=== PATIENT | male | born 1960 | race Caucasian/White ===

== ENCOUNTER 2018-03-23 08:11 | Inpatient (IN) | payer OTHER ==
--- NOTE | 2018-03-17 10:50 | RAD REPORT ---
EXAM DESCRIPTION: RAD - Chest Pa And Lat (2 Views) - 03/17/2018 10:43 am CLINICAL HISTORY: preop Chest pain. COMPARISON: No comparisons FINDINGS: The lungs are hyperexpanded but clear. Blunting of the costophrenic angles is present comp atible with pleural thickening. The heart is normal in size. No displaced fractures. IMPRESSION: Hyperexpanded but clear lungs.
--- NOTE | 2018-03-17 11:27 | EKG ---
Test Date: 2018-03-17 Test Time: 10:39:36 Drying Frame Operator: SKG MEASUREMENT RESULTS: Intervals: Rate: 64 DE: 148 QRSD: 76 QT: 408 QTc: 420 [place]: P: 48 DE: 148 QRS: 26 T: 34 INTERPRETIVE STATEMENTS: Normal sinus rhythm Normal ECG No previous ECG available for comparison Electronically Signed On 03-17-18 11:27:27 PATIENT ACCESS DIRECTOR by Parish Kirkland
[2018-03-17 12:26] LABS: Absolute Monocytes 0.7 K/uL (0.1-1.3); Absolute Neutrophil 8.3 K/uL (1.8-8.0); Basophils % 0.5 % (0-1.3); Eosinophils % 0.9 % (0-4.4); Hematocrit 42.9 % (39.6-49.0); MCH 32.3 pg (27.0-35.0); MCV 94.2 fL (80-100); MPV 8.8 fL (7.6-11.3); Monocytes % 6.4 % (3.3-12.3); RBC Red Blood Cell Count 4.55 M/uL (4.33-5.43)
[2018-03-17 12:29] LABS: Protime INR 0.97
[2018-03-17 12:40] LABS: Potassium 4.1 mmol/L (3.5-5.1)
[~2018-03-23 08:11] MED LIST: CEFAZOLIN 1GM (PREMIX IV) 0 GM/0 ML BAG ONE; CLINDAMYCIN INJ 600 MG in NA CHLORIDE 0.9% 50 ML IV SCH
[2018-03-23] MEDS ORDERED: Ringers Lactate 1,000 ML IV ONE ×2 (08:45→12:38)
[2018-03-23] MEDS ORDERED: TRANEXAMIC ACID 1,000 MG in NA CHLORIDE 0.9% 50 ML IV SCH (10:15)
[2018-03-23] MEDS ORDERED: FENTANYL CITR 100 MCG/2 ML ONE ×2 (10:45→12:00)
[2018-03-23] MEDS ORDERED: BUPIVACA 0.5%/EPI 0.0005%/PF 10 ML VIAL ONE ×3 (10:45→10:47)
[2018-03-23] MEDS ORDERED: DEXAMETHASONE 4 MG/ML VIAL ONE (10:45)
[2018-03-23] MEDS ORDERED: EPINEPHRINE/PF 1 MG/ML AMP ONE (10:45)
[2018-03-23] MEDS ORDERED: MIDAZOLAM HCL 2 MG/2 ML INJ ONE (10:45)
[2018-03-23] MEDS ORDERED: LIDOCAINE 2% MPF 5 ML VIAL ONE (11:30)
[2018-03-23] MEDS ORDERED: PROPOFOL 200 MG/20 ML VIAL IV ONE (11:30)
--- NOTE | 2018-03-23 14:08 | P.BOP ---
Preoperative diagnosis: right knee osteoarthritis Postoperative diagnosis: same Primary procedure: right total knee arthroplasty Remote Sensing Scientist: NONE,NONE Estimated blood loss: 20 cc Specimen: right knee bone remnants Findings: see dictation Anesthesia: General Complications: None Drain(s): Urinary catheter Implants: Biomet Size 67.5 CR femur, size 75 tibia, 10 mm CR-E poly Fluids & blood products: per anesthesia record; TT: 62 mins @ 300 mmHg Transferred to: Recovery Room Condition: Good
[2018-03-23] MEDS ORDERED: MORPHINE 4 MG/ML SYR IV PRN (14:10)
[2018-03-23] MEDS ORDERED: DOCUSATE NA 100 MG CAP PO PRN (14:10)
[2018-03-23] MEDS ORDERED: HYDROCODONE/APAP 7.5/325 MG TAB PO PRN (14:10)
[2018-03-23] MEDS ORDERED: MEPERIDINE HCL 25 MG/0.5 ML ONE (14:13)
[2018-03-23] MEDS ORDERED: MORPHINE 4 MG/ML SYR ONE (14:28)
--- NOTE | 2018-03-23 14:45 | RAD REPORT ---
EXAM DESCRIPTION: RAD - Knee Right 2 View - 03/23/2018 2:40 pm CLINICAL HISTORY: Post Op Right knee total knee arthroplasty COMPARISON: No comparisons FINDINGS: A right total knee arthroplasty has been performed. Hardware is in expected positioning al ignment. Small amount of air is present in joint space.
[2018-03-23 14:49] LABS: Hematocrit 39.5 % (39.6-49.0)
[2018-03-23 15:58] VITALS: BMI 32.8
[2018-03-23] MEDS: CLINDAMYCIN INJ 600 MG in NA CHLORIDE 0.9% 50 ML IV SCH (17:04)
[2018-03-23] MEDS: methylPREDNISolone 4 MG TAB PO SCH (18:17)
[2018-03-23] MEDS: OXYCODONE *CR* 10 MG TAB PO SCH (20:29)
--- NOTE | 2018-03-23 20:50 | P.OP ---
Preoperative diagnosis: right knee osteoarthritis Postoperative diagnosis: right knee osteoarthritis Primary procedure: right total knee arthroplasty Anesthesia: general Estimated blood loss: 20 cc Specimen: right knee bone remnants Findings: see dictation Operative Technique: Indication For Procedure: Vladimir is a 57-year-old female, who presented to my clinic with rightt knee pain due to right knee osteoarthritis. The patient failed conservative treatment measures including home exercises, corticosteroid injections and viscosupplementation injections. He reported continued pain that affect his activities of daily living. He was recommended total knee arthoplasty. Description Of Procedure: After informed consent was obtained, the patient was identified in preop holding area. The right lower extremity was marked. The patient underwent a femoral nerve block performed by Anesthesia. He was then taken back to the operative room and transferred to the operating table in supine fashion and placed under general LMA anesthesia. The right lower extremity was then prepped and draped in usual sterile fashion. A time-out was initiated. Correct patient and procedure were confirmed and identified. The patient had received preoperative prophylactic antibiotics. The right lower extremity was exsanguinated and the tourniquet was inflated to 300 mmHg. Approximately, a 15 cm longitudinal incision was made over the anterior aspect of the knee centered over the patella. A standard median parapatellar approach was taken. The dissection was taken to the extensor mechanism. A median parapatellar arthrotomy was then performed. The patella was then everted and the fat pad and medial and lateral meniscus were excised. A lateral release was performed of the patella and osteophytes were removed using a rongeur. There was minimal cartilage wear on the undersurface of the patella and it was decided to not resurface the patella. Next, attention was taken to the femur, retractors were placed within the knee and the knee was held in flexion. A partial synovectomy was performed over the anterior aspect of the distal femur. A cutting block has been created preoperatively using MRI imaging and the block was then placed over the distal femur and then positioned and was stacked into place and pins were placed within the guide hole in the block. The distal femoral cutting guide was then placed over the pre-placed guide pin and the distal femur was cut after proper confirming using an Mathew wing. After this was performed, the anterior-posterior distal femoral cuts were made as well as the chamfer cut without complication. MCL and lateral remnants were resected as well as patellar tendon with knee retractors. Both remnants were then removed and sent to Pathology. Next attention was taken to the proximal tibia. The soft tissue medially was then elevated off the proximal tibia directly off bone using Bovie electrocautery. Pre-made cutting block was placed over the proximal tibia and once locked into position, pin were placed as well as the alignment lester was used to ensure proper placement of the cutting guide. There was overall good alignment and position of the cutting guide. Pins were then placed. The cutting block was removed. The cutting guide was placed on the proximal tibia and again the mathew wing was then used to ensure proper depth of the cut. An osteotome then used to make cuts around the PCL and the saw was used to cut the proximal tibia and the proximal tibial cut was then removed with the meniscal grasper. Bone fragments were then removed and meniscectomies were completed. Next, the knee was held in 90 degrees of flexion and forward extension and a 10-mm guide was then selected and there was good overall fit and stability in flexion and extension. Next, the trials were placed, size 67.5 CR femur was placed and a size 75 tibia with a 10 mm poly. The knee was then ranged and had good stability, both in forward flexion and extension and had full range of motion. The knee was ranged and there was good stability of the patella as well as the rest of the knee. The tibia was marked with the Bovie electrocautery. The femur was drilled and once in proper position and the tibia was punched. Trial implants were then removed. The knee was then irrigated thoroughly with pulsed lavage normal saline. A 0.5% Marcaine with epinephrine was then used 30 cc for local anesthetic and to aid with postoperative pain control. The cement was prepared as well as the implant. Size 75 tibia was then placed followed by the size 67.5 CR femur. Excess cement was then removed using [place] elevator. A 10-mm trial poly was then placed and the knee was held in full extension as the cement hardened. Once the cement was completely hardened, the knee was ranged with good overall stability as well as good flexion and extension. Trial poly ethylene liner was removed and a final 10 mm CR-E poly was placed and locked in position. The knee was again irrigated thoroughly with normal saline. The tourniquet was let down. Hemostasis was achieved with Bovie electrocautery. The extensor mechanism was closed with #1 Vicryl in an interrupted fashion followed by #1 Vicryl in a running fashion. Fascia was then approximated using 0 Vicryl. Subcutaneous tissue was approximated used 2-0 Vicryl and the skin was approximated using 3-0 nylon. Sterile dressings were applied. The patient was awakened and transferred to PACU in stable condition. Postoperative Plan: He will be weightbearing as tolerated. Physical therapy will aide with mobilization and pain management. CPM machine will be placed in the PACU postoperatively. Complications: None Drain(s): Urinary catheter Implants: 67.5 CR femur, 75 tibia, 10 mm CR- E poly Fluids & blood products: per anesthesia record; 62 mins @ 300 mmHg Transferred to: Recovery Room Condition: Good
[2018-03-24] MEDS: CLINDAMYCIN INJ 600 MG in NA CHLORIDE 0.9% 50 ML IV SCH ×2 (02:09→09:07)
[2018-03-24] MEDS: ENOXAPARIN 30 MG/0.3 ML SQ SCH ×3 (05:53→20:20)
[2018-03-24] MEDS: methylPREDNISolone 4 MG TAB PO SCH ×2 (09:06→16:32)
[2018-03-24 09:07] LABS: Absolute Lymphocytes (CBC) 1.5 K/uL (0.7-4.9); Absolute Monocytes 0.7 K/uL (0.1-1.3); Absolute Neutrophil 7.9 K/uL (1.8-8.0); Basophils % 0.4 % (0-1.3); Eosinophils % 0.1 % (0-4.4); Hematocrit 39.8 % (39.6-49.0); Lymphocytes % 14.7 % (15.3-44.8); MCH 31.8 pg (27.0-35.0); MCV 93.4 fL (80-100); MPV 7.7 fL (7.6-11.3); Monocytes % 6.9 % (3.3-12.3); RBC Red Blood Cell Count 4.26 M/uL (4.33-5.43)
[2018-03-24] MEDS: CELECOXIB 100 MG CAPSULE PO SCH (09:07)
[2018-03-24] MEDS: OXYCODONE *CR* 10 MG TAB PO SCH ×2 (09:07→20:19)
[2018-03-24 09:16] LABS: Potassium 3.7 mmol/L (3.5-5.1)
--- NOTE | 2018-03-24 11:38 | P.PN ---
Subjective Date of Service: 03/24/18 Chief Complaint: s/p R TKA Subjective: Ambulating, Working w/ PT Pain controlled. Physical Examination - Vital Signs Temperature: 97.0 F Blood Pressure: 106/71 Pulse: 81 Respirations: 18 Pulse Ox (%): 97 - Physical Exam General: Alert, In no apparent distress Musculoskeletal: Other (RLE: dressing c/d/i; +EHL/FHL/GSC/TA; sensation grossly intact distally) - Studies Laboratory Data (last 24 hrs) 03/24/18 08:42: Sodium 137, Potassium 3.7, BUN 10, Creatinine 0.90, Glucose 122 H 03/24/18 08:42: WBC 10.1, Hgb 13.5 L, Hct 39.8, Plt Count 305 03/23/18 14:37: Hgb 13.4 L, Hct 39.5 L Assessment And Plan - Plan Vladimir is a 57 yo male s/p R TKA POD#1 -PT to mobilize; WBAT RLE -h/h stable -lovenox for DVT prophylaxis
[2018-03-24 21:17] VITALS: O2SAT 92
--- NOTE | 2018-03-25 10:02 | P.PN ---
Subjective Date of Service: 03/25/18 Chief Complaint: s/p R TKA Subjective: Ambulating, Improving, Working w/ PT Pain controlled. Physical Examination - Vital Signs Temperature: 97.4 F Blood Pressure: 99/63 Pulse: 73 Respirations: 16 Pulse Ox (%): 93 - Physical Exam General: Alert, In no apparent distress Musculoskeletal: Other (RLE: dressing c/d/i; no surrounding erythema; NVI distally) Assessment And Plan - Plan Vladimir is a 57 yo male s/p R TKA POD#2 -PT to mobilize; WBAT RLE -lovenox for DVT prophylaxis; will transition to Xarelto at home -d/c home today
--- NOTE | 2018-03-25 10:05 | P.DS ---
Admission Date: 03/23/18 Discharge Date: 03/25/18 Disposition: DC HOME/HOME HEALTH CARE Discharge Condition: GOOD Reason for Admission: s/p R TKA Procedures: right total knee arthroplasty 03/23/2018 Brief History of Present Illness: Vladimir is a 57 yo male that underwent R TKA on 03/23 without complication and was admitted to the floor for monitoring, pain control and PT Hospital Course: Vladimir underwent R TKA without complication and was admitted to the floor in stable condition. PT was consulted postoperatively and he ambulated safely. He was discharged on 03/25 in stable condition. His H/H and vital signs remained stable throughout hospital course. Vital Signs/Physical Exam: Temp Pulse Resp BP Pulse Ox 97.4 F 73 16 99/63 93 03/25/18 10:02 03/25/18 10:02 03/25/18 10:02 03/25/18 10:02 03/25/18 10:02 Laboratory Data at Discharge: WBC 10.1 K/uL (4.3-10.9) 03/24/18 08:42 Hgb 13.5 g/dL (13.6-17.9) L 03/24/18 08:42 Hct 39.8 % (39.6-49.0) 03/24/18 08:42 Plt Count 305 K/uL (152-406) 03/24/18 08:42 PT 11.5 SECONDS (9.5-12.5) 03/17/18 10:40 INR 0.97 03/17/18 10:40 APTT 31.1 SECONDS (24.3-36.9) 03/17/18 10:40 Sodium 137 mmol/L (136-145) 03/24/18 08:42 Potassium 3.7 mmol/L (3.5-5.1) 03/24/18 08:42 BUN 10 mg/dL (7-18) 03/24/18 08:42 Creatinine 0.90 mg/dL (0.55-1.3) 03/24/18 08:42 Glucose 122 mg/dL (74-106) H 03/24/18 08:42 Home Medications: Methotrexate [Methotrexate*] 6 tab PO EVERY 7TH DAY 03/17/18 methylPREDNISolone [Methylprednisolone] 4 mg PO BID 03/17/18 Hydrocodone 7.5/APAP 325 [[place] 7.5/325 mg*] 1 tab PO Q4H PRN tab 03/25/18 Patient Discharge Instructions: keep dressing clean and dry. Change dressing with new aquacell bandage on 03/30. Begin taking Xarelto on 03/26 in AM at home. Diet: Regular Activity: Weight bearing as tolerated Followup: Allen Can MD [ACTIVE - CAN ADMIT] - 1-2 Weeks
[2018-03-25] MEDS: methylPREDNISolone 4 MG TAB PO SCH (10:26)
[2018-03-25] MEDS: ENOXAPARIN 30 MG/0.3 ML SQ SCH (10:27)
[2018-03-25] MEDS: CELECOXIB 100 MG CAPSULE PO SCH (10:27)
[2018-03-25] MEDS: OXYCODONE *CR* 10 MG TAB PO SCH (10:27)
[2018-03-25 18:41] VITALS: BP 112/70; TEMP 98.3
[2018-03-27] MEDS ORDERED: METHOTREXATE 2.5 MG TAB PO SCH (09:00)
== END 2018-03-25 13:30 | disposition home health service (06) | DRG 470 ==
LOC: DS 08:11 → OR 08:11 → OBSVTOIN 14:12 → 2ND 14:12 → OBSVTOIN 03-24 13:12 → INTOOBSV 03-24 13:12
PROVIDERS: ADMIT Orthopaedic Surgery Sports Medicine; ATTEND Orthopaedic Surgery Sports Medicine
PROC: 0SRC0J9 Replacement of Right Knee Joint with Synthetic Substitute, Cemented, Open Approach (ICD-10-PCS; principal; 2018-03-23 09:30)
DX: M17.11 Unilateral primary osteoarthritis, right knee (principal); M06.9 Rheumatoid arthritis, unspecified
CPT/HCPCS: 36415; 71046; 80048; 85014; 85018; 85025; 85610; 85730; 88304; 88305; 88311; 93005; 97110; 97116; 97139; 97163; J0171; J0690; J1650; J2175; J2250; J2704; J3010; J7509

== ENCOUNTER 2022-12-30 06:02 | Observation (INO) | payer OTHER ==
[2022-12-24 09:48] LABS: Absolute Lymphocytes (CBC) 1.1 K/uL (0.7-4.9); Hematocrit 51.2 % (39.6-49.0); Lymphocytes % 44.4 % (15.3-44.8); MCV 98.7 fL (80-100); MPV 7.2 fL (7.6-11.3); Platelets 198 thou/uL (152-406); RBC Red Blood Cell Count 5.19 M/uL (4.33-5.43)
[2022-12-24 09:51] LABS: Protime INR 0.94
--- NOTE | 2022-12-24 10:13 | RAD REPORT ---
EXAM DESCRIPTION: [facility] Pa And Lat (2 Views)12/24/2022 9:43 am CLINICAL HISTORY: pre op for surgery. Hypertension COMPARISON: Chest Pa And Lat (2 Views) dated 03/17/2018 TECHNIQUE: PA and lateral views of the chest. FINDINGS: The lungs are clear. Stable bibasilar atelectatic changes. No pneumothorax or effusion. T he cardiomediastinal contours are unremarkable. IMPRESSION: No acute cardiopulmonary process.
--- NOTE | 2022-12-24 13:00 | EKG ---
Test Date: 2022-12-24 Test Time: 09:22:15 [place]: SHAWN MEASUREMENT RESULTS: Intervals: Rate: 70 ND: 154 QRSD: 76 QT: 402 QTc: 434 [place]: P: 56 ND: 154 QRS: 1 T: 35 INTERPRETIVE STATEMENTS: Normal sinus rhythm Low voltage QRS Borderline ECG Compared to ECG 03/17/2018 10:39:36 Low QRS voltage now present Electronically Signed On 12-24-22 13:00:01 CDT by Lance Lopez
[2022-12-24 15:02] LABS: Blood Morphology Comment NOT SEEN (NOT SEEN); Platelet Estimate ADEQ
[2022-12-30] MEDS ORDERED: CEFAZOLIN SODIUM 2 GM/VIAL ONE (06:28)
[2022-12-30] MEDS ORDERED: Ringers Lactate 1,000 ML IV ONE ×2 (06:28→09:26)
[2022-12-30] MEDS ORDERED: CELECOXIB 100 MG CAPSULE ONE (06:47)
[2022-12-30] MEDS ORDERED: GABAPENTIN 100 MG CAP ONE (06:47)
[2022-12-30] MEDS ORDERED: Oxycodone HCl/Acetaminophen 1 TAB TAB ONE (06:48)
[2022-12-30] MEDS ORDERED: ACETAMINOPHEN 500 MG TAB ONE (06:48)
[2022-12-30] MEDS ORDERED: dexAMETHasone 10 MG/ML VIAL ONE (07:03)
[2022-12-30] MEDS ORDERED: FENTANYL CITR 100 MCG/2 ML ONE (07:03)
[2022-12-30] MEDS ORDERED: LIDOCAINE 2% MPF 5 ML VIAL ONE ×2 (07:03→08:20)
[2022-12-30] MEDS ORDERED: MIDAZOLAM HCL 2 MG/2 ML INJ ONE (07:04)
[2022-12-30] MEDS ORDERED: BUPIVACAINE 0.25% PF 30 ML VIAL ONE (07:04)
[2022-12-30] MEDS ORDERED: EPINEPHRINE/PF 1 MG/ML AMP ONE (07:04)
[2022-12-30] MEDS ORDERED: TRANEXAMIC ACID 1,000 MG/10 ML VIAL IV ONE (07:37)
[2022-12-30] MEDS ORDERED: DEXMEDETOMIDINE HCL 200 MCG/2 ML VIAL ONE (08:06)
[2022-12-30] MEDS ORDERED: MAGNESIUM SULFATE 1 gm IVPB 1 GM/100 ML BAG IV ONE (08:07)
[2022-12-30] MEDS ORDERED: propofoL 200 MG/20 ML VIAL IV ONE (08:19)
[2022-12-30] MEDS ORDERED: KETAMINE HCL IN 0.9 % NACL 50 MG/5 ML SYRINGE IV ONE (08:19)
[2022-12-30] MEDS: BUPIVACAINE 0.5% PF 10 ML VIAL ONE ×2 (08:39→09:37)
[2022-12-30] MEDS ORDERED: ONDANSETRON 4 MG/2 ML VIAL ONE (09:35)
--- NOTE | 2022-12-30 11:02 | P.BOP ---
Preoperative diagnosis: left knee osteoarthritis Postoperative diagnosis: same Primary procedure: left total knee arthroplasty Logistics Planning Manager: NONE,NONE Estimated blood loss: 50 cc Specimen: left knee bone remnants Findings: see dictation Anesthesia: General Complications: None Implants: Biomet Efra Persona 8 CR femur, G tibia, 13 mm CR poly, 32 patella Fluids & blood products: per anesthesia record; TT: 89 mins @ 300 mmHg Transferred to: Recovery Room Condition: Good
[2022-12-30] MEDS: HYDROMORPHONE HCL 1 MG/ML INJ ONE ×2 (11:21→11:28)
[2022-12-30] MEDS ORDERED: ONDANSETRON 4 MG/2 ML VIAL IV PRN (11:29)
[2022-12-30] MEDS ORDERED: HYDROCODONE/APAP 7.5/325 MG TAB PO PRN (11:29)
[2022-12-30] MEDS ORDERED: DOCUSATE NA 100 MG CAP PO PRN (11:29)
[2022-12-30] MEDS ORDERED: ACETAMINOPHEN 325 MG TABLET PO PRN (11:29)
[2022-12-30] MEDS ORDERED: TRAMADOL HCL 50 MG TAB PO PRN (11:32)
--- NOTE | 2022-12-30 11:39 | P.OP ---
Preoperative diagnosis: left knee osteoarthritis Postoperative diagnosis: same Primary procedure: left total knee arthroplasty Anesthesia: general Estimated blood loss: 50 cc Specimen: left knee bone remnants Findings: see dictation Operative Technique: Indication For Procedure: Vladimir is a 62-year-old female, who presented to my clinic with left knee pain due to left knee osteoarthritis. The patient failed conservative treatment measures including home exercises, corticosteroid injections and viscosupplementation injections. He reported continued pain that affect his activities of daily living. He was recommended total knee arthoplasty. Description Of Procedure: After informed consent was obtained, the patient was identified in preop holding area. The left lower extremity was marked. The patient underwent an adductor canal nerve block performed by Anesthesia. He was then taken back to the operative room and transferred to the operating table in supine fashion and placed under general LMA anesthesia. The left lower extremity was then prepped and draped in usual sterile fashion. A time-out was initiated. Correct patient and procedure were confirmed and identified. The patient had received preoperative prophylactic antibiotics. The left lower extremity was exsanguinated and the tourniquet was inflated to 300 mmHg. Approximately, a 15 cm longitudinal incision was made over the anterior aspect of the knee centered over the patella. A standard median parapatellar approach was taken. The dissection was taken to the extensor mechanism. A median parapatellar arthrotomy was then performed. The patella was then everted and the fat pad and medial and lateral meniscus were excised. A lateral release was performed of the patella and osteophytes were removed using a rongeur. There was minimal cartilage wear on the undersurface of the patella and it was decided to not resurface the patella. Next, attention was taken to the femur, retractors were placed within the knee and the knee was held in flexion. A partial synovectomy was performed over the anterior aspect of the distal femur. A cutting block has been created preoperatively using CT scan imaging and the block was then placed over the distal femur and then positioned and was stacked into place and pins were placed within the guide hole in the block. The distal femoral cutting guide was then placed over the pre-placed guide pin and the distal femur was cut after proper confirming using an Mathew wing. After this was performed, the anterior-posterior distal femoral cuts were made as well as the chamfer cut without complication. MCL and lateral remnants were resected as well as patellar tendon with knee retractors. Both remnants were then removed and sent to Pathology. Next attention was taken to the proximal tibia. The soft tissue medially was then elevated off the proximal tibia directly off bone using Bovie electrocautery. Pre-made cutting block was placed over the proximal tibia and once locked into position, pin were placed as well as the alignment lester was used to ensure proper placement of the cutting guide. There was overall good alignment and position of the cutting guide. Pins were then placed. The cutting block was removed. The cutting guide was placed on the proximal tibia and again the mathew wing was then used to ensure proper depth of the cut. An osteotome then used to make cuts around the PCL and the saw was used to cut the proximal tibia and the proximal tibial cut was then removed with the meniscal grasper. Bone fragments were then removed and meniscectomies were completed. Next, the knee was held in 90 degrees of flexion and forward extension and a 12- mm guide was then selected and there was good overall fit and stability in flexion and extension. Next, the trials were placed, size 8 CR femur was placed and a size G tibia with a 13 mm poly. The knee was then ranged and had good stability, both in forward flexion and extension and had full range of motion. Lateral release was performed and the patella was cut and a size 32 patellar button was selected. The knee was ranged with good overall stability. The knee was ranged and there was good stability of the patella as well as the rest of the knee. The tibia was marked with the Bovie electrocautery. The femur was drilled and once in proper position and the tibia was punched. Trial implants were then removed. The knee was then irrigated thoroughly with pulsed lavage normal saline. A 0.5% Marcaine with epinephrine was then used 30 cc for local anesthetic and to aid with postoperative pain control. The cement was prepared as well as the implant. Size G tibia was then placed followed by the size 8 CR femur. Excess cement was then removed using [place] elevator. A 13-mm trial poly was then placed and the knee was held in full extension as the cement hardened. A 32 patellar implant was placed with cement without complication. Once the cement was completely hardened, the knee was ranged with good overall stability as well as good flexion and extension. Trial poly ethylene liner was removed and a final 13 mm CR-E poly was placed and locked in position. The knee was again irrigated thoroughly with normal saline. The tourniquet was let down. Hemostasis was achieved with Bovie electrocautery. The extensor mechanism was closed with #1 Vicryl in an interrupted fashion followed by #1 Vicryl in a running fashion. Fascia was then approximated using 0 Vicryl. Subcutaneous tissue was approximated used 2-0 Vicryl and the skin was approximated using 3-0 nylon. Sterile dressings were applied. The patient was awakened and transferred to PACU in stable condition. Postoperative Plan: He will be weightbearing as tolerated. Physical therapy will aide with mobilization and pain management. CPM machine will be placed in the PACU postoperatively. Complications: None Implants: Biomet Efra Persona 8 CR femur, G tiba, 13 CR poly, 32 patella Fluids & blood products: per anesthesia record; TT 89 mins @ 300 mmHG Transferred to: Recovery Room Condition: Good
--- NOTE | 2022-12-30 11:40 | RAD REPORT ---
EXAM DESCRIPTION: RAD - Knee Left 2 View - 12/30/2022 11:22 am CLINICAL HISTORY: s/p L TKA COMPARISON: No comparisons FINDINGS: Left total hip arthroplasty is noted. Skin lauren are noted. Mild gas within the joint. N o unexpected postoperative finding.
[2022-12-30] MEDS ORDERED: DRISDOL (VITAMIN D=ERGOCALCIFEROL) 50000 UNIT CAP PO SCH (12:00)
--- OUTSIDE RECORDS SUMMARY | 2022-12-30 12:35 | XMS REPORT | Continuity of Care Document ---
:1960 [facility] t Address [address] [place] [address] [place] [address] Care Team Providers Name Role Phone THAO RIDDLE Primary Care Physician Unavailable Dmitry Vick Attending Clinician Unavailable THAO RIDDLE Attending Clinician Unavailable RADHA JEFFERSON Attending Clinician Unavailable Radha Jefferson MD Attending Clinician Doctor Unassigned, [place] Attending Clinician Unavailable Thao Orellana Attending Clinician Lab, Ang - Db Attending Clinician Unavailable King GASPER MD, James C Attending Clinician Unknown, Attending Attending Clinician Unavailable NOLA PERKINS III Attending Clinician Unavailable RADHA JEFFERSON Admitting Clinician Unavailable Radha Jefferson MD Admitting Clinician Payers Payer Name Policy Type Policy Number Effective Date Expiration Date Reyna PENG PPO [id number] 2022 00:00:00 Problems Condition Condition Condition Status Onset Resolution Last Treating Co mments Source Name Details Category Date Date Treatment Clinician Date Obesity Obesity Disease Active Univers (BMI (BMI 7-31 ity of 30-39.9) 30-39.9) 00:00: [place] 00 Medical Branch Encounter Encounter Disease Active Uni vers for for 5-16 ity of screening screening 00:00: [place] colonoscop colonoscop 00 Mi dical y y Branch Encounter Encounter Disease Active Uni vers for for 5-01 [place] of hepatitis hepatitis [place] 00 Medical screening screening Bran ch test for test for low risk low risk patient patient Allergies, Adverse Reactions, Alerts Allergy Allergy Status Severity Reaction(s) Onset Inactive Treating Comm ents Source Name Type Date Date Clinician TETANUS DRUG Active High N/V Univers TOXOID 11-02 ity of 00:00: [place] 00 Medical [place] Tetanus Propensi Active Nausea Was put [facility] s Toxoid ty to and/or 11-02 in the ity of adverse Vomiting 00:00: hospital [place] reaction 00 as a Medical s to child Branch drug after getting tetanus shot. NO KNOWN Drug Active Univers ALLERGIE Class ity of S [facility] Social History Social Habit Start Date Stop Date Quantity Comments Source Gender identity [facility] Sexual orientation [facility] History of Social 2022-11-09 2022-11-09 Univers ity of function 00:00:00 00:00:00 [facility] Exposure to 2022-07-31 2022-08-10 Not sure [facility] SARS-CoV-2 (event) 00:00:00 08:33:00 [facility] Tobacco use and 2022-06-11 2022-06-11 Smokeless Universit y of exposure 00:00:00 00:00:00 tobacco non-user [facility] Sex Assigned At [birth year] Universit y of 00:00:00 00:00:00 [facility] Smoking Status Start Date Stop Date Source Tobacco smoking consumption [facility] Branch Never smoked tobacco [facility] Medications Ordered Filled Start Stop Current Ordering Indication Dosage Frequency Signature Comments Components Source Medication Medication Date Date Medication? Clinician (SIG) Name Name lactated Yes 1000mL at 100 Unive rs ringers IV 7-31 mL/hr, ity of infusion 18:30: 1,000 [place] 1[place]000 [place] 00 IV Medical Infusion, Branch CONTINUOUS , Starting on Wed11/09/22 at 1330, Until Discontinu ed, Routine, PACU lactated 2022- No 1000mL at 100 Univ ers ringers IV 11-09 07-31 mL/hr, ity of infusion 18:30: 21:20 1,000 mL, [place] 1,000 mL 00 :27 IV Medical Infusion, Branch CONTINUOUS , Starting on Wed11/09/22 at 1330, Until Wed11/09/22 at 1620, Routine, PACU ondansetron Yes 4mg 4 mg, Slow Univers (ZOFRAN 11-09 IV Push, ity of (PF)) 18:24: PRN, 1 [place] injection 4 31 dose, Medical mg Starting Branch on Wed11/09/22 at 1324, Until Discontinu ed, Routine, Nausea and Vomiting (N/V), PACU ondansetron 2022- No 4mg 4 mg, Slow Univers (ZOFRAN 11-09 IV Push, ity of (PF)) 18:24: 21:20 PRN, 1 [place] injection 4 31 :27 dose, Medical mg Starting Branch on Wed11/09/22 at 1324, Until Wed11/09/22 at 1620, Routine, Nausea and Vomiting (N/V), PACU water for 2022- No PRN, Univers irrigation 11-09 Starting ity of irrigation 17:02: 18:23 on Wed [place] solution 00 :11/09/22 at Medic al 1202, Branch Until Wed11/09/22 at 1323, Routine, Intra-op simethicone 2022- No PRN, Unive rs (GAS RELIEF 11-09 Starting ity of (SIMETHICON 17:01: 18:23 on Mon [place] E)) 40 00 :31 11/09/22 at Medical mg/0.6 mL 1201, Branch drops Until Wed11/09/22 at 1323, Routine, Intra-op lactated 2022- No 1000mL at 42 Unive rs ringers IV 11-09 mL/hr, ity of infusion 16:30: 16:48 1,000 mL, [place] 1,000 mL 00 :00 IV Medical Infusion, Branch ONCE, 1 dose, On Wed11/09/22 at 1130, Routine, DSU Pre-op lactated 2022- No 1000mL at 42 Unive rs ringers IV 11-09 mL/hr, ity of infusion 16:30: 16:48 1,000 mL, [place] 1,000 mL 00 :00 IV Medical Infusion, Branch ONCE, 1 dose, On Wed11/09/22 at 1130, Routine, DSU Pre-op sodium,sebastián 2022-0 2022- No 117mL Take 117 Univers ssium,mag 5-16 05-17 mL by ity of sulfates 00:00: 04:59 mouth [place] 17.5-3.13-1 00 :00 now for 1 Med ical .6 gram dose. Branch sodium,pota 2022-0 3- No 117mL Take 117 Univers ssium,mag 5-16 05-17 mL by ity of sulfates 00:00: 04:59 mouth [place] 17.5-3.13-1 00 :00 now for 1 Med ical .6 gram dose. Branch ergocalcife 2023-0 Yes [id number] Take 1 Univers rol, 5-01 capsule by ity of vitamin d2, 00:00: mouth [place] 1,250 mcg 00 weekly. Medical (50,000 Branch unit) capsule ergocalcife 2023-0 Yes [id number] Take 1 Univers rol, 5-01 capsule by ity of vitamin d2, 00:00: mouth [place] 1,250 mcg 00 weekly. Medical (50,000 Branch unit) capsule ergocalcife 2023-0 Yes [id number] Take 1 Univers rol, 5-01 capsule by ity of vitamin d2, 00:00: mouth [place] 1,250 mcg 00 weekly. Medical (50,000 Branch unit) capsule ergocalcife 2023-0 Yes [id number] Take 1 Univers rol, 5-01 capsule by ity of vitamin d2, 00:00: mouth [place] 1,250 mcg 00 weekly. Medical (50,000 Branch unit) capsule ergocalcife 2023-0 Yes [id number] Take 1 Univers rol, 5-01 capsule by ity of vitamin d2, 00:00: mouth [place] 1,250 mcg 00 weekly. Medical (50,000 Branch unit) capsule ergocalcife 2023-0 Yes [id number] Take 1 Univers rol, 5-01 capsule by ity of vitamin d2, 00:00: mouth [place] 1,250 mcg 00 weekly. Medical (50,000 Branch unit) capsule ergocalcife 2023-0 Yes [id number] Take 1 Univers rol, 5-01 capsule by ity of vitamin d2, 00:00: mouth [place] 1,250 mcg 00 weekly. Medical (50,000 Branch unit) capsule ergocalcife 2023-0 Yes [id number] Take 1 Univers rol, 5-01 capsule by ity of vitamin d2, 00:00: mouth [place] 1,250 mcg 00 weekly. Medical (50,000 Branch unit) capsule ergocalcife 2023-0 Yes [id number] Take 1 Univers rol, 5-01 capsule by ity of vitamin d2, 00:00: mouth [place] 1,250 mcg 00 weekly. Medical (50,000 Branch unit) capsule ergocalcife 2023-0 Yes [id number] Take 1 Univers rol, 5-01 capsule by ity of vitamin d2, 00:00: mouth [place] 1,250 mcg 00 weekly. Medical (50,000 Branch unit) capsule ergocalcife 2023-0 Yes [id number] Take 1 Univers rol, 5-01 capsule by ity of vitamin d2, 00:00: mouth [place] 1,250 mcg 00 weekly. Medical (50,000 Branch unit) capsule ergocalcife 2023-0 Yes [id number] Take 1 Univers rol, 5-01 capsule by ity of vitamin d2, 00:00: mouth [place] 1,250 mcg 00 weekly. Medical (50,000 Branch unit) capsule ergocalcife 2023-0 Yes [id number] Take 1 Univers rol, 5-01 capsule by ity of vitamin d2, 00:00: mouth [place] 1,250 mcg 00 weekly. Medical (50,000 Branch unit) capsule Vital Signs Vital Name Observation Time Observation Value Comments Source Systolic blood 2022-11-09 19:05:00 124 mm[Hg] Univer sity of pressure [facility] Diastolic blood 2022-11-09 19:05:00 82 mm[Hg] Unive rsity of pressure [facility] Heart rate 2022-11-09 19:05:00 66 /min Universi ty of [facility] Oxygen saturation in 2022-11-09 19:05:00 95 /min [facility] Arterial blood by [facility] Pulse oximetry Branch Respiratory rate 2022-11-09 19:00:00 16 /min Univ ersity of [place] Medical [place] Body temperature 2022-11-09 18:22:00 35.83 [place] Univ ersity of [facility] Branch Body height 2022-11-02 18:00:00 175.3 cm Universi ty of [place] Medical [place] Body weight 2022-11-02 18:00:00 113.399 kg Universi ty of [place] Medical Branch BMI 2022-11-02 18:00:00 36.92 kg/m2 Universi ty of [facility] Branch Systolic blood 2022-11-09 16:35:00 110 mm[Hg] Univer sity of pressure [facility] Branch Diastolic blood 2022-11-09 16:35:00 77 mm[Hg] Unive rsity of [facility] Heart rate 2022-11-09 16:35:00 88 /min Universi ty of [facility] Body temperature 2022-11-09 16:35:00 36.72 [place] Univ ersity of [facility] Respiratory rate 2022-11-09 16:35:00 16 /min Univ ersity of [facility] Oxygen saturation in 2022-11-09 16:35:00 94 /min [facility] Arterial blood by [facility] Pulse oximetry Branch Body height 2022-11-02 18:00:00 175.3 cm Universi ty of [place] [facility] Branch Body weight 2022-11-02 18:00:00 113.399 kg Universi ty of [place] Medical Branch BMI 2022-11-02 18:00:00 36.92 kg/m2 Universi ty of [place] [facility] Systolic blood 2022-08-10 13:47:00 126 mm[Hg] Univer sity of pressure [facility] Branch Diastolic blood 2022-08-10 13:47:00 82 mm[Hg] Unive rsity of pressure [facility] Heart rate 2022-08-10 13:46:00 87 /min Universi ty of [facility] Branch Body height 2022-08-10 13:46:00 175.3 cm Universi ty of [facility] Body weight 2022-08-10 13:46:00 118.389 kg Universi ty of [place] Medical [place] BMI 2022-08-10 13:46:00 38.54 kg/m2 Universi ty of [facility] Oxygen saturation in 2022-08-10 13:46:00 94 /min [facility] Arterial blood by [facility] Pulse oximetry Branch Systolic blood 2022-06-11 16:27:00 126 mm[Hg] Univer sity of pressure [facility] Diastolic blood 2022-06-11 16:27:00 89 mm[Hg] Unive rsity of pressure [facility] Heart rate 2022-06-11 16:27:00 88 /min [facility] Body temperature 2022-06-11 16:27:00 36.89 [place] [facility] 2022-06-11 16:27:00 20 /min [facility] Body height 2022-06-11 16:27:[address] [facility] Body weight 2022-06-11 16:27:[address] [facility] BMI 2022-06-11 16:27:00 38.40 kg/m2 [facility] Oxygen saturation in 2022-06-11 16:27:00 95 /min [facility] Arterial blood by [facility] Pulse oximetry [place] Procedures Procedure Date / Time Performing Clinician Source Performed COLONOSCOPY 2022-11-09 17:12:00 Radha Jefferson [facility] COLONOSCOPY (ENDO) 2022-11-09 14:19:46 Thao Riddle [facility] COLONOSCOPY (ENDO) 2022-11-09 14:19:46 Thao Riddle [facility] DAY SURGERY - ADC 2022-11-09 05:01:00 Doctor Unassigned, No [facility] ersity of [place] Name Medical Branch REFERRAL- 2022-09-30 05:01:00 Doctor Unassigned, No [facility] REQUEST/RESPONSE Name Medical [place] EXTERNAL PROVIDER 2022-08-28 05:01:00 Doctor Unassigned, No Univ ersity of [place] RECORDS Name Medical Branch EXTERNAL PROVIDER 2022-08-28 05:01:00 Doctor Unassigned, No Univ ersity of [place] RECORDS Name Medical [place] COMP. METABOLIC PANEL 2022-08-10 14:39:00 Thao Riddle [facility] ([id number]) Medical [place] CBC WITH DIFF 2022-08-10 14:39:00 Thao Riddle o f [facility] MEDICAL 2022-08-10 05:01:00 Doctor Unassigned, No [facility] RELEASE/CLEARANCE FORMS Name Medical [place] ASSIGNMENT OF BENEFITS 2022-06-11 16:17:23 Doctor Unassigned, No [facility] Name Medical Branch Encounters Start End Encounter Admission Attending Care Care Encounter Source Date/Time Date/Time Type Type Clinicians Facility Department ID 2022-06-18 Outpatient SALBADOR Vick [facility] [id number] Common 16:17:00 Dmitry [id number] [facility] 2022-06-11 Outpatient Nava STPAZ [facility] [id number] Common 09:21:00 Dmitry [id number] [facility] 2021-05-07 Outpatient [place] Vick [facility] [id number] Common 12:10:34 Dmitry [id number] [facility] 2023-02-15 2023-02-15 [facility] [id number] Univers 08:30:00 08:30:00 THAO [facility] 2022-11-09 2022-11-09 Outpatient R [facility] REBECA [id number] Univers 11:22:00 14:05:00 RADHA donnphill [facility] 2022-11-09 2022-11-09 [facility] [id number] [id number] Univers 11:22:00 14:05:00 Encounter Radha MAYER 350.1.13.10 ity of [facility] 4.2.[place].2.[place] SUR[place]ICAL [id number] [facility] 071 Branch 2022-11-09 2022-11-09 Surgery [facility] [id number] Univers 12:15:00 13:21:00 Radha MAYER 350.1.13.10 i ty of [facility] 4.2.7.2.[place] SUR[place]ICAL [id number] [facility] 020 Branch 2022-11-09 2022-11-09 Orders Doctor BARKER 1.2.840.114 [id number] Univers 00:00:00 00:00:00 Only Unassigned, JODEE 350.1.13.10 ity of [place] [facility] 4.2.7.2.686 [place] [id number] [address] 2022-10-02 2022-10-02 [facility]phone [facility] [id number] Univers 00:00:00 00:00:00 Thao HEALTH 350.1.13.10 it y of [facility] 4.2.7.2.686 [place] HOMER?BLEA [id number] [address] MEDICAL OFFICE [facility] 2022-09-30 2022-09-30 Orders Doctor LUCERO 1.2.840.114 [id number] Univers 00:00:00 00:00:00 Only Unassigned, JODEE 350.1.13.10 ity of [place] [facility] 4.2.7.2.686 [place] [id number] [address] 2022-08-31 2022-08-31 [facility]phone [facility] [id number] Univers 00:00:00 00:00:00 Thao HEALTH 350.1.13.10 it y of [facility] 4.2.7.2.686 [place] HOMER?BLEA [id number] [address] OFFICE [facility] 2022-08-25 2022-08-25 Telephone Ronny [facility] 1.2.840.114 [id number] Univers 00:00:00 00:00:00 Radha MORENO 350.1.13.10 i ty of [facility] 4.2.[place].2.[place] PROFESS[place] [id number] [address] 2022-08-25 2022-08-25 Prep For Ronny [facility] 1.2.840.114 [id number] Univers 00:00:00 00:00:00 Surgery Radha MORENO 350.1.13.10 i ty of [facility] 4.2.7.2.[place] [id number] [address] 2022-08-12 2022-08-12 Telephone [facility] [id number] Univers 00:00:00 00:00:00 Thao HEALTH 350.1.13.10 it y of [place] 4.2.7.2.686 [place] HOMER?BLEA [id number] Mi karie WALDROP [address] [place] MEDICAL OFFICE [facility] 2022-08-11 2022-08-11 Telephone [facility] [id number] Univers 00:00:00 00:00:00 Thao HEALTH 350.1.13.10 it y of [place] 4.2.7.2.686 [place] HOMER?BLEA [id number] [address] OFFICE [facility] 2022-08-10 2022-08-10 Clinical Staff Pharmacist Lab, [place] - Rolando [facility] 1.2.840.1 [id number] Univers 09:30:00 09:45:00 Visit Brittneylaxmi Thao RUSH 350.1.13.10 ity of [facility] 4.2.7.2.686 [place] HOMER?BLEA [id number] Mi karie WALDROP [address] [facility] OFFICE [facility] 2022-08-10 2022-08-10 [facility] [id number] Univers 09:00:00 09:08:53 THAO ity of [facility] 2022-08-10 2022-08-10 Office [facility] 1.2.840.114 [id number] Univers 09:00:00 09:08:53 Visit Thao HEALTH 350.1.13.10 it y of [facility] 4.2.7.2.686 [place] HOMER?BLEA [id number] [address] OFFICE [facility] 2022-08-10 2022-08-10 Orders Doctor LUCERO 1.2.840.114 [id number] Univers 00:00:00 00:00:00 Only Unassigned, JODEE 350.1.13.10 ity of [place] [facility] 4.2.7.2.686 [place] [id number] [address] 2022-08-04 2022-08-04 [facility]phone [facility] [id number] Univers 00:00:00 00:00:00 Thao HEALTH 350.1.13.10 it y of [facility] 4.2.7.2.686 [place] OHMER?BLEA [id number] Mi diccolby [facility] [address] [place] MEDICAL OFFICE BUILDING 2022-06-11 2022-06-11 Nola Latham [facility] 1.2.840.114 [id number] Univers 10:20:00 10:40:00 Care Unknown, Attending [facility] 350.1.13.10 ity of [facility] 4.2.7.2.686 [place] HOMER?BLEA [id number] Mi dical [facility] [address] [place] MEDICAL OFFICE BUILDING 2022-06-11 2022-06-11 Outpatient R KING GASPER, [facility] [id number] Univers 10:20:00 10:20:00 NOLA ity [facility] 2022-06-11 2022-06-11 Orders Doctor LUCERO 1.2.840.114 [id number] Univers 00:00:00 00:00:00 Only Unassigned, JODEE 350.1.13.10 ity of [place] [facility] 4.2.7.2.686 [place] [id number] [address] Results Test Description Test Time Test Comments Results Result Comments Source COMP. METABOLIC PANEL ([id number]) 2022-08-10 19:29:00 Test Item Value Reference Range Interpretation Comme nts NA (test code = 6969317761) 140 mmol/L 135-145 K (test code = 7297530872) 4.3 mmol/L 3.5-5.0 CL (test code = 6030893462) 107 mmol/L 98-108 CO2 TOTAL (test code = 31 mmol/L 23-31 6711528591) AGAP (test code = 2447986030) 2 2-16 BUN (test code = 7391072362) 14 mg/dL 7-23 GLUCOSE (test code = 6651990057) 99 mg/dL 70-110 CREATININE (test code = 0.95 mg/dL 0.60-1.25 0745921463) TOTAL BILI (test code = 1.0 mg/dL 0.1-1.2 3916960028) CALCIUM (test code = 0106152085) 8.7 mg/dL 8.6-10.6 T PROTEIN (test code = 6.6 g/dL 6.3-8.2 7496317901) ALBUMIN (test code = 2485802354) 3.6 g/dL 3.5-5.0 ALK PHOS (test code = 2078239692) 85 U/L 34-122 ALTv (test code = 1742-6) 19 U/L 5-50 AST(SGOT) (test code = 21 U/L 13-40 9131854351) eGFR (test code = 4199356249) 79.8 mL/min/1.73m2 DUTCH (test code = DUTCH) Association of Glomerular Filtration Rate (GFR) and Staging of Kidney Disease* + +--------- + ----+| GFR (mL/min/1.73 m2) ?| With Kidney Damage ?| ?Without Kidney Damage+ +--- + +| ?>90 ?| ?Stage one ?| ? Normal ?+ +-------- + -----+| ?60-89 ?| ?Stage two ?| ? Decreased GFR ? + +--------- + ----+| ?30-59 ?| ?Stage three ?| ? Stage three ? + +--------- + ----+| ?15-29 ?| ?Stage four ? | ? Stage four ?+ +-------- + -----+| ?<15 (or dialysis) ? ?| ?Stage five ? | ? Stage five ?+ +-------- + -----+ *Each stage assumes the associated GFR level has been in effect for at least three months. ?Stages 1 to 5, with or without kidney disease, indicate chronic kidney disease. Notes: Determination of stages one and two (with eGFR >59mL/min/1.73 m2) requires estimation of kidney damage for at least three months as defined by structural or functional abnormalities of the kidney, manifested by either:Pathological abnormalities or Markers of kidney damage (including abnormalities in the composition of the blood or urine or abnormalities in imaging tests). [facility] WITH [id number] 19:21:58 Test Item Value Reference Range Interpretation Comments WBC (test code = 4.60 See_Comment [Xkmkwbzqj 4632-2) message] The sy stem which generated this result transmitted reference range : 4.20 - 10.70 10*3/?L. The reference range was not used to interpret this result as normal/abnormal . RBC (test code = 4.96 See_Comment [Automated 789-8) message] The sy stem which generated this result transmitted reference range : 4.26 - 5.52 10*6/?L. The reference range was not used to interpret this result as normal/abnormal . HGB (test code = 16.5 g/dL 12.2-16.4 H 718-7) HCT (test code = 50.1 % 38.4-49.3 H 4544-3) MCV (test code = 101.0 fL 81.7-95.6 H 787-2) MCH (test code = 33.3 pg 26.1-32.7 H 785-6) MCHC (test code = 32.9 g/dL 31.2-35.0 786-4) RDW-SD (test code = 47.4 fL 38.5-51.6 89786-8) RDW-CV (test code = 12.8 % 12.1-15.4 788-0) PLT (test code = 207 See_Comment [Automated 777-3) message] The sy stem which generated this result transmitted reference range : 150 - 328 10*3/ ?L. The reference r mounika was not used to interpret this result as normal/abnormal . MPV (test code = 10.2 fL 9.8-13.0 13373-0) NRBC/100 WBC (test 0.0 See_Comment [Automat ed code = 0232726909) message] The system which generated this result transmitted reference range : 0.0 - 10.0 /100 WBCs. The refer ence range was not u sed to interpret th is result as normal/abnormal . NRBC x10^3 (test code See_Comment [Auto mated = 8399286388) message] The s ystem which generated this result transmitted reference range : 10*3/?L. The reference range was not used to interpret this result as normal/abnormal . GRAN MAT (NEUT) % 62.0 % (test code = 770-8) IMM GRAN % (test code 0.40 % = 9606453870) LYMPH % (test code = 20.4 % 736-9) MONO % (test code = 4.8 % 5905-5) EOS % (test code = 11.5 % 713-8) BASO % (test code = 0.9 % 706-2) GRAN MAT x10^3(ANC) 2.85 10*3/uL 1.99-6.95 (test code = 7869472358) IMM GRAN x10^3 (test 0.00-0.06 code = 3839302774) LYMPH x10^3 (test code 0.94 10*3/uL 1.09-3.23 L = 731-0) MONO x10^3 (test code 0.22 10*3/uL 0.36-1.02 L = 742-7) EOS x10^3 (test code = 0.53 10*3/uL 0.06-0.53 711-2) BASO x10^3 (test code 0.04 10*3/uL 0.01-0.09 = 704-7) Lab Interpretation Abnormal (test code = 68493-2) [facility] History and Physical Notes Date/Time Note Provider Source 2022-11-09 12:00:30 [id number]:00:30Formatting of this note [facility] is different from the original.GENERAL SURGERY ADMISSION HISTORY & PHYSICALSurgery Admission11/09/2022Reason for Admission / Chief Complaint: Screening colonoscopyHistory of Present Illness: Lucero Celis is a 62 year old male with PMHx as below who presents for screening colonoscopy. He has never had a colonoscopy before. He denies abdominal pain, nausea, vomiting, and rectal bleeding. His sister was diagnosed with colon cancer in her 50's. He completed [employer] and is ready.Past Medical History:No past medical history on file.Past Surgical History:Past Surgical History: Procedure Laterality Date KNEE ARTHROSCOPY TOTAL KNEE ARTHROPLASTY Right Allergies:Allergies Allergen Reactions Tetanus Toxoid Nausea and/or Vomiting Was put in the hospital as a child after getting tetanus shot. Medications:Current Discharge Medication List CONTINUE these medications which have NOT CHANGED Details ergocalciferol, vitamin d2, 1,250 mcg (50,000 unit) capsule Take 1 capsule by mouth weekly.Qty: 12 capsule, Refills: 1 Associated Diagnoses: Vitamin D deficiency No current facility-administered medications for this encounter. Family History:Family History Problem Relation Age of Onset Stomach Cancer Mother Social History:Social History Socioeconomic History Marital status: Tobacco Use Smoking status: Never Smokeless tobacco: Never Review of Systems: A 14 point ROS was obtained, only positive responses are in BOLDConstitutional: Fever, chills, loss of appetite, fatigue, unexplained weight loss, unexplained weight gain, weaknessHead/Ears/Nose/Mouth/Throat:Head: Headache, head injury, neck pain, neck stiffnessEars: Ear discharge, hearing loss, ear pain, tinnitusNose: Nose bleeds, sinus congestion, runny nose, postnasal drip, sneezing, sinus pressureMouth: Dental problems, mouth sores, sore tongue, dry mouthThroat: Sore throat, trouble swallowing, voice changeEyes: Discharge, itching, pain, redness, pain, vision disturbance, blurred vision, vision loss, cataracts, glaucomaCV: Chest pain, palpitations, arrhythmias, dyspnea on exertion, othopnea, claudication, edema, coronary artery disease/history of MIRespiratory: Cough, sputum production, hemoptysis, wheezing, shortness of breath, sleep apneaGI: Dysphagia, abdominal pain, abdominal distention, indigestion, nausea, vomiting, diarrhea, constipation, hematemesis, blood in stool or dark stool, rectal bleeding, rectal pain, jaundice : Frequency, urgency, pain or burning with urination, flank pain, hematuria, incontinence, change in urinary stream, discharge, bleeding, pelvic pain, irregular mensesMusculoskeletal: Muscle pain, joint pain, joint swelling, back pain, stiffness, weakness, limitation of motion, arthritis, traumaIntegumentary/Breast: Integumentary: Rash, itching, pigmented lesions, lumps, tenderness, swelling, woundBreast: Pain, lumps, nipple discharge, skin changesNeurological: Weakness, sensory changes, syncope, seizures, headache, numbness, tingling, tremor, traumaHematologic/Lymphatic: Hematologic: Bleeding tendency, easy bruising, history of blood clots, anticoagulation/antiplatelet therapyLymphatic: LymphadenopathyEndocrine: Polyuria, polydipsia, polyphagia, heat or cold intolerance, hair loss, appetite changesAllergic/Immunologic: Allergic: Allergic reactionsImmunologic: Recurrent infectionsPsychiatric: Agitation, confusion, decreased concentration, hallucinations, anxiety, self-injury, sleep disturbance, suicidal ideationPhysical Exam:BP 110/77 | Pulse 88 | Temp 36.7 ?C (98.1 ?F) (Temporal Artery) | Resp 16 | Ht 1.753 m (5' 9") | Wt 113.4 kg (250 lb) | SpO2 94% | BMI 36.92 kg/m? No intake or output data in the 24 hours ending 11/09/22 1200Constitutional: Awake, alert, oriented, in no acute distressHead: Normocephalic, atraumaticEyes: Extraocular movements grossly intact, pupils equal and reactive to light and accomodation, anicteric scleraeEars: Normal external examNose: Normal external examMouth: Moist mucous membranesNeck: Supple, no jugular venous distentionCardiovascular: Regular rate and rhythmRespiratory: Symmetry of chest wall motion, no respiratory distressGI: Soft, nontender, non-distendedMusculoskeletal: Normal tone and strength, normal range of motionNeurologic: CN II through XII grossly intact, no focal deficitsSkin: Warm and dry, capillary refill <2 seconds, no jaundice, rashes, lesions, or erythemaPsychiatric: Appropriate mood and affect, no obvious deficits of insight or judgmentLabs: Latest Reference Range & Units 08/10/22 09:39 WBC x10^3 4.20 - 10.70 10*3/?L 4.60 RBC x10^6 4.26 - 5.52 10*6/?L 4.96 HGB 12.2 - 16.4 g/dL 16.5 (H) HCT 38.4 - 49.3 % 50.1 (H) MCV 81.7 - 95.6 fL 101.0 (H) MCH 26.1 - 32.7 pg 33.3 (H) MCHC 31.2 - 35.0 g/dL 32.9 RDW-SD 38.5 - 51.6 fL 47.4 RDW-CV 12.1 - 15.4 % 12.8 PLT x10^3 150 - 328 10*3/?L 207 MPV 9.8 - 13.0 fL 10.2 NRBC /100 WBC 0.0 - 10.0 /100 WBCs 0.0 NRBC x10^3 10*3/?L <0.01 GRAN MAT (NEUT) % % 62.0 IMM GRAN % % 0.40 LYMPH% % 20.4 MONO % % 4.8 EOS % % 11.5 BASO % % 0.9 GRAN MAT x10^3(ANC) 1.99 - 6.95 10*3/uL 2.85 IMM GRAN x10^3 0.00 - 0.06 10*3/uL <0.03 LYMPH x10^3 1.09 - 3.23 10*3/uL 0.94 (L) MONO x10^3 0.36 - 1.02 10*3/uL 0.22 (L) EOS x10^3 0.06 - 0.53 10*3/uL 0.53 BASO x10^3 0.01 - 0.09 10*3/uL 0.04 NA 135 - 145 mmol/L 140 K 3.5 - 5.0 mmol/L 4.3 CL 98 - 108 mmol/L 107 CO2 TOTAL 23 - 31 mmol/L 31 AGAP 2 - 16 2 BUN 7 - 23 mg/dL 14 GLUCOSE 70 - 110 mg/dL 99 CREATININE 0.60 - 1.25 mg/dL 0.95 eGFR mL/min/1.73m2 79.8 TOTAL BILI 0.1 - 1.1 mg/dL 1.0 CHOL 120 - 200 mg/dL 175 TRIG 30 - 170 mg/dL 80 HDL CHOL >40 mg/dL 51 HDLC RATIO <=5.0 3.4 LDL CHOL <=160 mg/dL 108 VLDL 5 - 60 mg/dL 16 CALCIUM 8.6 - 10.6 mg/dL 8.7 T PROTEIN 6.3 - 8.2 g/dL 6.6 ALBUMIN 3.5 - 5.0 g/dL 3.6 ALK PHOS 34 - 122 U/L 85 ALTv 5 - 50 U/L 19 AST(SGOT) 13 - 40 U/L 21 PSA <=4.00 ng/mL 1.23 TSH 0.45 - 4.70 mIU/L 2.99 VIT D 25OH 25 - 80 ng/mL <13 (L) HCV Ab Negative HCV Semi-Quantitative 0.02 (H): Data is abnormally high(L): Data is abnormally lowAssessment: Lucero Celis is a 62 year old male who presents for a colonoscopy. He has never had a colonoscopy before. His sister was diagnosed with colon cancer in her 50's. He completed Suprep and is ready.Plan:Proceed with screening colonoscopyRisks including bleeding and perforation, benefits, alternatives of colonoscopy were discussed with the patient; all questions answered; informed consent obtained.Radha Jefferson M.D.11/09/2022 12:00 [id number] and physical [id number]:04:41History and physical [id number] 9|[id number] for patient [id number] and physical noteLN[address] Zu[id number] [id number] .[id number]. [id number]
[2022-12-30 13:40] VITALS: BMI 37.3
[2022-12-30 15:22] LABS: Hematocrit 46.1 % (39.6-49.0)
[2022-12-30] MEDS: CEFAZOLIN SODIUM 2 GM in NA CHLORIDE 0.9% 100 ML IVPB SCH (16:33)
[2022-12-30 21:08] VITALS: O2SAT 97
[2022-12-31] MEDS: CEFAZOLIN SODIUM 2 GM in NA CHLORIDE 0.9% 100 ML IVPB SCH ×2 (00:37→09:16)
[2022-12-31] MEDS ORDERED: ENOXAPARIN 30 MG/0.3 ML SQ SCH (06:00)
[2022-12-31 06:40] LABS: Hematocrit 41.6 % (39.6-49.0)
[2022-12-31 08:10] VITALS: BP 102/58; TEMP 97.5
[2022-12-31] MEDS ORDERED: CELECOXIB 100 MG CAPSULE PO SCH (09:00)
--- NOTE | 2022-12-31 13:07 | P.DS ---
Admission Date: 12/30/22 Discharge Date: 12/31/22 Disposition: DC HOME/HOME HEALTH CARE Discharge Condition: GOOD Reason for Admission: s/p L TKA Procedures: left TKA Brief History of Present Illness: Vladimir is a 62-year-old male who underwent left total knee arthroplasty on December 30, 2022 without complication. He was admitted to the floor in stable condition for pain control and physical therapy. Hospital Course: Patient was admitted to floor postoperatively with in stable condition. He was started on Lovenox for DVT prophylaxis. He mobilize safely with physical therap y. He was discharged on December 31, 2022 in stable condition with vital signs stable. He will follow-up in 2 weeks for wound check and staple removal. He was discharged with Xarelto for DVT prophylaxis. Vital Signs/Physical Exam: Temp Pulse Resp BP Pulse Ox 97.5 F 71 16 102/58 L 94 12/31/22 08:00 12/31/22 08:00 12/31/22 08:00 12/31/22 08:00 12/31/22 08:00 Laboratory Data at Discharge: WBC 2.50 thou/uL (4.3-10.9) L 12/24/22 09:20 Hgb 14.3 g/dL (13.6-17.9) D 12/31/22 06:03 Hct 41.6 % (39.6-49.0) 12/31/22 06:03 Plt Count 198 thou/uL (152-406) 12/24/22 09:20 PT 10.3 SECONDS (9.5-12.5) 12/24/22 09:20 INR 0.94 12/24/22 09:20 APTT 33.6 SECONDS (24.3-36.9) 12/24/22 09:20 Sodium 137 mEq/L (136-145) 12/24/22 09:20 Potassium 4.0 mEq/L (3.5-5.1) 12/24/22 09:20 BUN 15 mg/dL (7-18) 12/24/22 09:20 Creatinine 1.12 mg/dL (0.70-1.30) 12/24/22 09:20 Glucose 94 mg/dL (74-106) 12/24/22 09:20 Home Medications: Ergocalciferol (Vitamin D2) [Vitamin D 50,000 Unit Cap] 50,000 unit PO Q7D 12/24/22 Hydrocodone 7.5/APAP 325 [[place] 7.5/325 mg*] 1 tab PO Q4H PRN tab 12/31/22 Physician Discharge Instructions: Keep dressing clean dry and intact. Use bilateral thigh-high STEPHANIE hose for 2 weeks to aid with swelling. Begin Xarelto tomorrow, January 01, in the morning and take once daily. Follow-up with Dr. Can in 2 weeks for staple removal. Diet: Regular Activity: Weight bearing as tolerated Followup: NONE,NONE [Primary Care Provider] - Allen Can MD [ACTIVE - CAN ADMIT] - 1-2 Weeks
== END 2022-12-31 13:40 | disposition home health service (06) ==
LOC: PRE 06:02 → INTOOBSV 11:29 → 4TH 11:29
PROVIDERS: ADMIT Orthopaedic Surgery Sports Medicine; ATTEND Orthopaedic Surgery Sports Medicine
PROC: 0SRD069 Replacement of Left Knee Joint with Oxidized Zirconium on Polyethylene Synthetic Substitute, Cemented, Open Approach (ICD-10-PCS; principal; 2022-12-30 08:00)
DX: M17.12 Unilateral primary osteoarthritis, left knee (principal); M25.562 Pain in left knee; Z88.0 Allergy status to penicillin; Z88.7 Allergy status to serum and vaccine
CPT/HCPCS: 36415; 71046; 80048; 85014; 85018; 85025; 85610; 85730; 88304; 88311; 93005; 94010; 97110; 97116; 97139; 97161; 97530; G0378; G0379; J0171; J1100; J1170; J1650; J2001; J2250; J2405; J2704; J3010; J3475; J7120